=== PATIENT | male | born 1950 | race African-American/Black ===

== ENCOUNTER 2016-06-30 18:48 | Inpatient (IN) | payer OTHER, MEDICARE ==
[2016-06-30] MEDS ORDERED: NS 0.9% 1000 ML* 1,000 ML IV ONE ×2 (19:43→19:49)
[2016-06-30 19:55] LABS: Hematocrit 36 % (42-52); Hemoglobin 11.5 g/dl (14.0-18.0); Mean Corpuscular HGB Conc 32 g/dl (31-36); Mean Corpuscular Hemoglobin 27 pg (27-31); Mean Corpuscular Volume 85 fL (80-94); Mean Platelet Volume 9 um3 (7.4-10.4); Red Blood Count 4.24 10^6/ul (4.0-5.4); Red Cell Distribution Width 16 % (10.5-15); White Blood Count 9.2 10^3/ul (3.5-10.8)
[2016-06-30 20:11] LABS: ALT 26 U/L (7-52); AST 39 U/L (13-39); Albumin 4.2 g/dL (3.2-5.2); Alkaline Phosphatase 83 U/L (34-104); Anion Gap 4 mmol/L (2-11); BUN/Creatinine Ratio 10.5 (8-20); Blood Urea Nitrogen 11 mg/dL (6-24); CO2 Carbon Dioxide 29 mmol/L (22-32); Calcium 9.8 mg/dL (8.6-10.3); Chloride 102 mmol/L (101-111); EGFR African American 90.9 (>60); EGFR Non-African American 70.7 (>60); Glucose 90 mg/dL (70-100); Sodium 135 mmol/L (133-145); Total Protein 7.2 g/dL (6.4-8.9)
[2016-06-30] MEDS ORDERED: Iohexol 300* (CONTRAST) 10 ML SDV IV ONE (20:18)
[2016-06-30 20:36] LABS: Acetaminophen < 15 mcg/mL; Alcohol < 10 mg/dL (<10); Salicylate < 2.50 mg/dL (<30)
[2016-06-30 20:47] LABS: TSH (Thyroid Stimulating Horm) 0.73 mcIU/mL (0.34-5.60)
--- NOTE | 2016-06-30 21:05 | RAD ---
Indication: Head injury. CT of the brain was performed without IV contrast. Ventricular structures are midline. No midline shift is noted. The extra-axial spaces are unremarkable there is no evidence of intracranial mass or hemorrhage. No other high or low density lesions are identified. Mastoid air cells and paranasal sinuses are unremarkable. IMPRESSION: No intracranial mass or hemorrhage is noted.
[2016-06-30 21:08] LABS: Urine Bilirubin Negative (Negative); Urine Glucose Negative (Negative); Urine Nitrite Negative (Negative)
--- NOTE | 2016-06-30 21:16 | RAD ---
Indication: Chest and abdomen injury. Contrast: Administered 100.0 ml of OMNIPAQUE 300 mgi/ml CT of the chest, abdomen and pelvis was performed after IV contrast administration. Coronal and sagittal reconstructed images were obtained. The lung apices demonstrate some scarring in the apices with emphysematous changes in the right lung apex. No focal nodules or pneumothorax is noted. Dependent changes are noted. The heart demonstrates no pericardial effusion. There is no mediastinal or hilar adenopathy. The thyroid gland is otherwise unremarkable. The thoracic spine is otherwise unremarkable with visualized.. The liver is normal in size. There are no focal lesions or intrahepatic duct dilatation noted. The gallbladder demonstrates calcified gallstones but is partially contracted. No pericholecystic fluid or wall thickening is noted. The spleen is normal in size. No adrenal lesions are noted. The kidneys demonstrate symmetric nephrograms without focal lesions. Atherosclerotic aorta is noted without evidence of aneurysmal dilatation. No dilated loops of bowel are noted. Urinary bladder is unremarkable. No hernias are noted. No free fluid is identified. IMPRESSION: EMPHYSEMATOUS CHANGES OF THE LUNG ARRIAGA ARE NOTED. CHOLELITHIASIS WITHOUT BILIARY DUCT DILATATION. NO EVIDENCE OF SOLID ORGAN INJURY IS NOTED.
--- NOTE | 2016-06-30 21:16 | RAD ---
Indication: Shoulder pain. 3 views of left shoulder demonstrates no fracture. No other bone or joint abnormalities identified. IMPRESSION: No fracture of the left shoulder is noted.
[2016-06-30 21:33] LABS: Benzodiazepine Urine Screen None Detected (None Detect)
[2016-06-30 22:01] LABS: Troponin I 0.11 ng/mL (<0.04)
[2016-06-30] MEDS ORDERED: Acetaminophen TAB* 325 MG PO ONE (23:28)
[2016-07-01 00:27] LABS: Troponin I 0.47 ng/mL (<0.04)
[2016-07-01] MEDS ORDERED: Aspirin TAB* 325 MG PO ONE (00:32)
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
[2016-07-01] MEDS ORDERED: Heparin DRIP 25,000 UNITS(*) 25,000 UNITS/500 ML BAG IV SCH (02:00)
[2016-07-01] MEDS ORDERED: Heparin VIAL(*) 5000 UNITS/ML VIAL (FIVE THOUSAND) IV SCH (02:00)
[2016-07-01 03:37] LABS: Troponin I 0.57 ng/mL (<0.04)
[2016-07-01 06:56] LABS: HDL Cholesterol 40.6 mg/dL
[2016-07-01 07:19] LABS: Troponin I 0.5 ng/mL (<0.04)
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
[2016-07-01] MEDS: Aspirin EC Low Dose* 81 MG TAB.EC PO SCH (09:11)
[2016-07-01] MEDS: ARIPiprazole TAB* 15 MG PO SCH (09:11)
[2016-07-01] MEDS: Lisinopril TAB* 5 MG PO SCH (09:12)
[2016-07-01] MEDS: QUEtiapine TAB* 100 MG PO SCH (09:12)
[2016-07-01] MEDS: Clotrimazole 1% CREAM* 45 GM TOPICAL SCH ×2 (09:13→20:42)
[2016-07-01 10:49] LABS: Creatine Kinase 1134 U/L (10-223)
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
[2016-07-01] MEDS ORDERED: Regadenoson* 0.4 MG/5 ML SYRINGE ONE (12:50)
[2016-07-01] MEDS ORDERED: Aminophylline IV* 25 MG/ML 10 ML VIAL ONE (12:50)
[2016-07-01] MEDS: Enoxaparin(*) 80 MG/0.8 ML SYR SUBCUT SCH (16:07)
--- NOTE | 2016-07-01 16:43 | ECHO ---
Patient: ROWAN SOLANO [facility] Rec#: [id number] : 1950 Date: 07/01/2016 Age: 65y Height: 175 cm / 68.9 in Weight: 76 kg / 167.5 lbs Sex: M BSA: 1.91 Room#: 433 Admit Date#: 07/01/2016 Type: Inpatient Referring: SHABANA WALLACE MD Reading: Stella Vincent MD Ict Trainer: Bossman Heredia RDCS Transthoracic Echocardiogram Indication: Troponin elevation BP: 158/49 HR: 51 Rhythm: Bradycardia Findings History: NSTEMI Technical Comments: The study quality is good. Completed 1605 Left Ventricle: The left ventricular chamber size is normal. Global left ventricular wall motion and contractility are within normal limits. There is normal left ventricular systolic function. The estimated ejection fraction is 55-60%. Abnormal left ventricular diastolic filling is observed, consistent with impaired relaxation. Left Atrium: The left atrial chamber size is normal. Right Ventricle: The right ventricular cavity size is normal. The right ventricular global systolic function is normal. Right Atrium: The right atrial cavity size is normal. Aortic Valve: There is aortic annular calcification. There is no evidence of aortic regurgitation. There is no evidence of aortic stenosis. Mitral Valve: The mitral valve leaflets appear normal. There is a trace of mitral regurgitation. There is no evidence of mitral stenosis. Tricuspid Valve: There is trace tricuspid regurgitation. The right ventricular systolic pressure is estimated at 28 mmHg. Pulmonic Valve: The pulmonic valve appears normal. There is no evidence of pulmonic regurgitation. There is no pulmonic stenosis. Pericardium: There is no pericardial effusion. Aorta: There is no dilatation of the ascending aorta. There is no dilatation of the aortic arch. There is no dilation of the aortic root. Pulmonary Artery: The main pulmonary artery appears normal. Venous: The inferior vena cava appears normal in size. There is a greater than 50% respiratory change in the inferior vena cava dimension. Conclusions There is normal left ventricular wall motion and systolic function. The estimated ejection fraction is 55-60%. Abnormal left ventricular diastolic filling is observed, consistent with impaired relaxation. The right ventricular global systolic function is normal. All valves show good function. There is a trace of mitral regurgitation. There is trace tricuspid regurgitation. The right ventricular systolic pressure is estimated at 28 mmHg. No prior echo to compare. Measurements Name Value Normal Range RVIDd (AP) 2D 1.8 cm (0.9 - 2.6) RVDdMajor (2D) 2.7 cm (2.2 - 4.4) RAd ISD 4CH 5 cm (3.4 - 4.9) RA (A4C)W 2.7 cm (2.9 - 4.6) IVSd (2D) 0.9 cm (0.6 - 1) LVPWd (2D) 0.8 cm (0.6 - 1) LVIDd (2D) 4.7 cm (3.6 - 5.4) LVIDs (2D) 3.4 cm - LV FS (2D) 29 % (25 - 45) Aortic Annulus 1.8 cm (1.4 - 2.6) Ao root diameter (2D) 3.4 cm (2.1 - 3.5) Ascending Ao 2.7 cm (2.1 - 3.4) Aortic arch 1.2 cm (1.8 - 3.4) LA dimension (AP) 2D 4 cm (2.3 - 3.8) LAd ISD 4CH 5.5 cm (2.9 - 5.3) LA ISD 4CH W 3.9 cm (2.5 - 4.5) Name Value Normal Range LA ESV SP 4CH (A/L) 69 ml - LA ESV SP 2CH (A/L) 65 ml - LA ESV BP (A/L) 67 ml - LA ESV BP (A/L) index 35.27 ml/m2 - LA ESV SP 4CH (MOD) 62 ml - LA ESV SP 2CH (MOD) 58 ml - Name Value Normal Range MV E-wave Vmax 0.74 m/sec - MV deceleration time 174 msec - MV A-wave Vmax 0.92 m/sec - MV E:A ratio 0.79 ratio - LV septal e' Vmax 0.12 m/sec - LV lateral e' Vmax 0.06 m/sec - LV E:e' septal ratio 6.2 ratio - LV E:e' lateral ratio 12.3 ratio - Name Value Normal Range LVOT diameter 1.6 cm - LVOT Vmax 0.9 m/sec - Name Value Normal Range TR Vmax 2.5 m/sec - TR peak gradient 25 mmHg - RAP 3 mmHg - RVSP 28 mmHg - IVC diameter 1.6 cm - Name Value Normal Range PV Vmax 1 m/sec -
--- NOTE | 2016-07-01 17:47 | PN ---
Hospitalist Progress Note Spoke with staff from [facility]. States that patient hallucinates at baseline, does not cause any problems. Will continue to monitor. No need for psych consultation or change in medications at this point.
[2016-07-01] MEDS ORDERED: Atorvastatin* 20 MG TAB PO SCH (21:00)
[2016-07-02] MEDS: Enoxaparin(*) 80 MG/0.8 ML SYR SUBCUT SCH (05:07)
[2016-07-02] MEDS: QUEtiapine TAB* 100 MG PO SCH (08:22)
[2016-07-02] MEDS: Lisinopril TAB* 5 MG PO SCH (08:22)
[2016-07-02] MEDS: ARIPiprazole TAB* 15 MG PO SCH (08:22)
[2016-07-02] MEDS: Aspirin EC Low Dose* 81 MG TAB.EC PO SCH (08:22)
[2016-07-02] MEDS: Clotrimazole 1% CREAM* 45 GM TOPICAL SCH ×2 (08:23→20:13)
--- NOTE | 2016-07-02 13:35 | RAD ---
HISTORY: Hypertension, lipidemia, positive biomarkers COMPARISONS: None TECHNIQUE: A 2 day stress/rest myocardial perfusion study was performed, with pharmacologic stress. The stress portion was monitored by Dr. Vicnent. Gated SPECT imaging was performed, without CT-based attenuation correction secondary to patient body habitus DOSE: Stress: Technetium 99m tetrofosmin, 25.3 millicuries, injected at 1:05 PM on July 01, 2016 Rest: Technetium 99m tetrofosmin, 25.02 millicuries, injected at 6:40 AM on July 02, 2016 Pharmacologic agent: Lexiscan FINDINGS: CARDIAC MONITORING: Nondiagnostic EKG portion EF: 69 % with stress, 62% with rest TID: 0.97 MOTION: Normal motion, with normal wall thickening. PERFUSION: There is a moderate reversible photopenic defect of the distal anterior wall extending to the apex. OTHER: None IMPRESSION: REVERSIBLE HYPOPERFUSION OF THE ANTERIOR WALL EXTENDING TO THE APEX CONSISTENT WITH ISCHEMIA ASSESSMENT: INTERMEDIATE RISK. Based on imaging criteria from ACC/AHA 2002. Guideline Update for the Management of Patient's with Chronic Stable Angina, table 23. Noninvasive Risk Stratification.
--- NOTE | 2016-07-02 14:24 | DCNOTE ---
Patient seen this afternoon. Was very upset he did not get breakfast. Denies chest pain. Continues to have some B/L shoulder soreness. On exam, RRR, s1 and s2 present, no m/g/r, abd soft, NTND, BS+ Initial read on nuclear scan was read as reversible ischemic area.
[2016-07-02] MEDS ORDERED: Lisinopril TAB* 5 MG PO ONE (14:31)
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
[2016-07-02] MEDS: Atorvastatin* 20 MG TAB PO SCH (20:12)
[2016-07-03] MEDS: QUEtiapine TAB* 100 MG PO SCH (08:54)
[2016-07-03] MEDS: Lisinopril TAB* 5 MG PO SCH (08:55)
[2016-07-03] MEDS: Aspirin EC Low Dose* 81 MG TAB.EC PO SCH (08:55)
[2016-07-03] MEDS: Clotrimazole 1% CREAM* 45 GM TOPICAL SCH ×2 (08:55→20:09)
[2016-07-03] MEDS: ARIPiprazole TAB* 15 MG PO SCH (10:06)
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
[2016-07-03] MEDS: Enoxaparin(*) 80 MG/0.8 ML SYR SUBCUT SCH (17:22)
[2016-07-03] MEDS: Atorvastatin* 20 MG TAB PO SCH (20:08)
[2016-07-03] MEDS ORDERED: hydrALAZINE IV* 20 MG/ML VIAL IV SLOW PU PRN (20:45)
[2016-07-04] MEDS: Lisinopril TAB* 5 MG PO SCH ×2 (08:47→10:13)
[2016-07-04] MEDS: ARIPiprazole TAB* 15 MG PO SCH ×2 (08:47→10:13)
[2016-07-04] MEDS: Aspirin EC Low Dose* 81 MG TAB.EC PO SCH ×2 (08:47→10:13)
[2016-07-04] MEDS: QUEtiapine TAB* 100 MG PO SCH ×2 (08:47→10:13)
[2016-07-04] MEDS: Enoxaparin(*) 80 MG/0.8 ML SYR SUBCUT SCH ×3 (08:47→11:36)
[2016-07-04] MEDS: Clotrimazole 1% CREAM* 45 GM TOPICAL SCH ×2 (08:48→20:21)
[2016-07-04] MEDS: Haloperidol TAB* 5 MG PO PRN (10:12)
[2016-07-04] MEDS: Enoxaparin(*) 40 MG/0.4 ML SYR SUBCUT SCH (12:59)
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
[2016-07-04] MEDS: Atorvastatin* 20 MG TAB PO SCH (20:18)
[2016-07-05] MEDS: QUEtiapine TAB* 100 MG PO SCH (08:09)
[2016-07-05] MEDS: Aspirin EC Low Dose* 81 MG TAB.EC PO SCH (08:09)
[2016-07-05] MEDS: Enoxaparin(*) 40 MG/0.4 ML SYR SUBCUT SCH (08:09)
[2016-07-05] MEDS: Clotrimazole 1% CREAM* 45 GM TOPICAL SCH ×2 (08:09→20:00)
[2016-07-05] MEDS: ARIPiprazole TAB* 15 MG PO SCH (08:09)
[2016-07-05] MEDS: Lisinopril TAB* 10 MG PO SCH ×2 (08:09→20:00)
[2016-07-05] MEDS ORDERED: Enoxaparin(*) 40 MG/0.4 ML SYR SUBCUT SCH (09:00)
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
[2016-07-05] MEDS: Atorvastatin* 20 MG TAB PO SCH (19:59)
[2016-07-05] MEDS ORDERED: Haloperidol INJ IV/IM* 5 MG/ML AMP ONE (23:17)
[2016-07-05] MEDS ORDERED: Ziprasidone IM INJ* 20 MG/ML VIAL IM ONE (23:22)
[2016-07-06 06:02] LABS: BUN/Creatinine Ratio 15.5 (8-20); Calcium 10.1 mg/dL (8.6-10.3); EGFR African American 99.6 (>60); EGFR Non-African American 77.4 (>60); Potassium 4.6 mmol/L (3.5-5.0)
[2016-07-06] MEDS: ARIPiprazole TAB* 15 MG PO SCH (08:13)
[2016-07-06] MEDS: QUEtiapine TAB* 100 MG PO SCH (08:14)
[2016-07-06] MEDS: Aspirin EC Low Dose* 81 MG TAB.EC PO SCH (08:15)
[2016-07-06] MEDS: Lisinopril TAB* 10 MG PO SCH ×2 (08:16→19:27)
[2016-07-06] MEDS: Enoxaparin(*) 40 MG/0.4 ML SYR SUBCUT SCH (08:21)
[2016-07-06] MEDS: Clotrimazole 1% CREAM* 45 GM TOPICAL SCH ×2 (08:22→19:30)
--- NOTE | 2016-07-06 15:36 | CONSULT ---
Identification - Patient Identification Reason for Psychiatric Consultation: Violent Behavior -: Patient is a 65 year old, M admitted on 07/01/16. - MHU Identification Employment Status: Disabled Hx Psychiatric Hospitalization: Yes History - Objective HPI: The patient is much more pleasant today on exam, welcoming me into his room and inquiring appropriately about his transfer to the [facility]. This clinician did speak with [facility] outpatient psychiatrist, David Patterson ([phone]), from the [facility] outpatient clinic in [place], [place]. According to Dr. Patterson, Mr. Jackson's last appointment with him had been on June 01, at which time they discussed adding Depakote to the patient's regimen, due to his increasing agitated behavior in his retirement. The patient was reluctant to consider this and the medication was not started. It was also revealed that Mr. Jackson receives a biweekly Haldol injection of 100mg, with the last being received on of this year. Dr. Jackson also revealed that the patient had had an acute psychiatric hospitalization at the [facility] in the fall of 2015. Lab Results: Laboratory Tests 07/01/16 07/01/16 07/01/16 02:55 02:55 06:19 APTT 29.9 Sodium Potassium Chloride Carbon Dioxide Anion Gap BUN Creatinine Est GFR ( Amer) Est GFR (Non-Af Amer) BUN/Creatinine Ratio Glucose Calcium Total Creatine Kinase 4194 H 3972 H CK-MB (CK-2) 13.4 H 12.6 H Troponin I 0.57 H* 0.50 H* Triglycerides 32 Cholesterol 109 LDL Cholesterol 62 HDL Cholesterol 40.6 07/01/16 07/06/16 19:25 05:33 APTT 40.7 H Sodium 132 L Potassium 4.6 Chloride 100 L Carbon Dioxide 25 Anion Gap 7 BUN 15 Creatinine 0.97 Est GFR ( Amer) 99.6 Est GFR (Non-Af Amer) 77.4 BUN/Creatinine Ratio 15.5 Glucose 112 H Calcium 10.1 Total Creatine Kinase CK-MB (CK-2) Troponin I Triglycerides Cholesterol LDL Cholesterol HDL Cholesterol Exam Appearance: Well Developed/Nourished Hygiene: Normal Grooming: Fairly Well Kept Psychomotor Activities: Normal Exhibits Abnormal Movement: No Attitude and Relatedness: Cooperative Eye Contact: Fair - Speech Quality: Unpressured Latencies: Normal Quantity: Terse Patient's Decription of Mood: "Okay" Observed Affect: Tense Affect Consistent with: Dysphoria Patient's Thought Process: Goal Directed Thought Content: Yes Paranoid Ideation, No Passive Wish, No Suicidal Planning, No Homicidal Ideation Experiencing Hallucinations: No, Sensorium is Clear Type of Hallucinations: Visual: No, Auditory: No, Command: No Level of Consciousness: Alert Orientation: Yes Intact, Yes Orientated to Time, Yes Orientated to Place, Yes Orientated to Person Impulse Control: Poor Insight and Judgement: Impaired Impression - Impression Clinical Impression: 65 y.o. , AA male with a history of chronic schizophrenia, currently admitted to the medical service secondary to elevated troponin values , who has been paranoid, agitated and violent of late at his retirement. The patient awaits transfer to an accepting [facility]. Inpatient DSM-IV Dx: Schizophrenia Merits Inpatient Hospitalization: Yes Problem List - U Problems Type of Problem: Impulse Control Status of Problem: Active Plan - Treatment Plan Treatment Plan: The patient is receiving treatment with aripiprazole, quetiapine and clonazepam. He remains in need of psychiatric hospitalization due to paranoia and his retirement's refusal to accept him home without [facility] inpatient care. We will continue to await acceptance for transfer to the [facility]. He will need his next Haldol Decanoate injection of 100mg IM on July 10. Continued Medication Management: Continue Outpt Medication Medications: Current Medications Aripiprazole (Abilify Tab*) 30 mg PO DAILY [facility] Last Admin: 07/06/16 08:13 Dose: 30 mg Aspirin (Aspirin Ec Low Dose*) 81 mg PO DAILY [facility] Last Admin: 07/06/16 08:15 Dose: 81 mg Atorvastatin Calcium (Lipitor*) 40 mg PO 2100 [facility] Last Admin: 07/05/16 19:59 Dose: 40 mg Clotrimazole (Clotrimazole 1%*) 1 applic TOPICAL BID [facility] Last Admin: 07/06/16 08:22 Dose: Not Given Enoxaparin Sodium (Lovenox(*)) 40 mg SUBCUT DAILY [facility] Last Admin: 07/06/16 08:21 Dose: Not Given Haloperidol (Haldol Tab*) 5 mg PO Q6H PRN PRN Reason: AGITATION/ANXIETY/INSOMNIA Last Admin: 02/25/17 10:12 Dose: 5 mg Lisinopril (Prinivil Tab*) 20 mg PO DAILY [facility] Last Admin: 07/06/16 08:16 Dose: 20 mg Lisinopril (Prinivil Tab*) 10 mg PO BEDTIME [facility] Last Admin: 07/05/16 20:00 Dose: 10 mg Quetiapine Fumarate (Seroquel Tab*) 200 mg PO DAILY [facility] Last Admin: 07/06/16 08:14 Dose: 200 mg - Discharge Plan Discharge Plan: Inpatient Hospitalization
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
[2016-07-06] MEDS: Atorvastatin* 20 MG TAB PO SCH (19:27)
[2016-07-06] MEDS: Haloperidol TAB* 5 MG PO PRN (22:58)
[2016-07-07] MEDS ORDERED: Ziprasidone IM INJ* 20 MG/ML VIAL IM ONE ×3 (03:19→17:00)
[2016-07-07] MEDS: Clotrimazole 1% CREAM* 45 GM TOPICAL SCH ×2 (08:01→21:54)
[2016-07-07] MEDS: ARIPiprazole TAB* 15 MG PO SCH (08:01)
[2016-07-07] MEDS: Lisinopril TAB* 10 MG PO SCH ×2 (08:01→21:54)
[2016-07-07] MEDS: QUEtiapine TAB* 100 MG PO SCH (08:01)
[2016-07-07] MEDS: Aspirin EC Low Dose* 81 MG TAB.EC PO SCH (08:01)
[2016-07-07] MEDS: Enoxaparin(*) 40 MG/0.4 ML SYR SUBCUT SCH (08:07)
[2016-07-07 08:36] LABS: Hematocrit 38 % (42-52); Hemoglobin 12.3 g/dl (14.0-18.0); Mean Platelet Volume 9 um3 (7.4-10.4)
[2016-07-07] MEDS: Haloperidol TAB* 5 MG PO PRN (08:39)
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
--- NOTE | 2016-07-07 19:00 | PN ---
Progress Note - Progress Note Note: spent on discharge 65 minutes
[2016-07-07] MEDS: Atorvastatin* 20 MG TAB PO SCH (21:55)
[2016-07-08] MEDS: Aspirin EC Low Dose* 81 MG TAB.EC PO SCH (08:19)
[2016-07-08] MEDS: ARIPiprazole TAB* 15 MG PO SCH (08:20)
[2016-07-08] MEDS: QUEtiapine TAB* 100 MG PO SCH (08:20)
[2016-07-08] MEDS: Lisinopril TAB* 10 MG PO SCH (08:20)
[2016-07-08] MEDS: Enoxaparin(*) 40 MG/0.4 ML SYR SUBCUT SCH (08:21)
[2016-07-08] MEDS: Clotrimazole 1% CREAM* 45 GM TOPICAL SCH (08:21)
[2016-07-08] MEDS ORDERED: Ziprasidone * 20 MG CAP (generic Geodon) PO SCH (09:00)
[2016-07-08 10:50] VITALS: BP 166/48
== END 2016-07-08 12:25 | DRG 884 ==
LOC: ED 18:48 → MEDTELE 07-01 02:22 → MED 07-02 23:40
PROVIDERS: ADMIT Internal Medicine; ATTEND Internal Medicine
DX: R45.1 Restlessness and agitation (principal); F20.9 Schizophrenia, unspecified; I10 Essential (primary) hypertension; R79.89 Other specified abnormal findings of blood chemistry; R00.1 Bradycardia, unspecified; Z79.82 Long term (current) use of aspirin; F43.10 Post-traumatic stress disorder, unspecified; E78.5 Hyperlipidemia, unspecified; Z88.0 Allergy status to penicillin; Z88.8 Allergy status to other drugs, medicaments and biological substances; Z87.891 Personal history of nicotine dependence; K80.20 Calculus of gallbladder without cholecystitis without obstruction; I51.89 Other ill-defined heart diseases; M25.512 Pain in left shoulder; M25.511 Pain in right shoulder
CPT/HCPCS: 36415; 70450; 71260; 74177; 78452; 80048; 80053; 80061; 80307; 80320; 80329; 81003; 82550; 82553; 84443; 84484; 85014; 85018; 85025; 85049; 85730; 93005; 93017; 93306; 99406; A9270-GY; A9502; G0480; J0280; J0360; J1630; J1650; J2785; J3486; Q9967

== ENCOUNTER 2016-09-02 14:33 | Inpatient (IN) | payer OTHER, MEDICARE ==
[2016-09-02 15:05] LABS: Hematocrit 41 % (42-52); Hemoglobin 12.8 g/dl (14.0-18.0); Mean Corpuscular HGB Conc 32 g/dl (31-36); Mean Corpuscular Hemoglobin 27 pg (27-31); Mean Corpuscular Volume 86 fL (80-94); Mean Platelet Volume 9 um3 (7.4-10.4); Red Blood Count 4.71 10^6/ul (4.0-5.4); Red Cell Distribution Width 17 % (10.5-15)
[2016-09-02 15:23] LABS: Troponin I 0.03 ng/mL (<0.04)
[2016-09-02 15:24] LABS: ALT 21 U/L (7-52); AST 28 U/L (13-39); Albumin 4.5 g/dL (3.2-5.2); Alkaline Phosphatase 59 U/L (34-104); Anion Gap 17 mmol/L (2-11); BUN/Creatinine Ratio 11.5 (8-20); Blood Urea Nitrogen 15 mg/dL (6-24); CO2 Carbon Dioxide 17 mmol/L (22-32); Calcium 10.2 mg/dL (8.6-10.3); Chloride 101 mmol/L (101-111); EGFR Non-African American 55.2 (>60); Globulin 3.2 g/dL (2-4); Glucose 128 mg/dL (70-100); Magnesium 2.7 mg/dL (1.9-2.7); Potassium 4.2 mmol/L (3.5-5.0); Sodium 135 mmol/L (133-145); Total Protein 7.7 g/dL (6.4-8.9)
--- NOTE | 2016-09-02 15:39 | RAD ---
HISTORY: Seizure COMPARISONS: June 30, 2016 TECHNIQUE: Multiple contiguous axial CT scans were obtained of the head without intravenous contrast. FINDINGS: HEMORRHAGE/INFARCT: There is no hemorrhage or acute infarct. MASSES/SHIFT: There is no mass or shift. EXTRA-AXIAL SPACES: There are no extra-axial fluid collections. SULCI AND VENTRICLES: The sulci and ventricles are normal in size and position for the patient's stated age. CEREBRUM: There are no focal parenchymal abnormalities. BRAINSTEM: There are no focal parenchymal abnormalities. CEREBELLUM: There are no focal parenchymal abnormalities. VESSELS: The vessels are grossly normal. PARANASAL SINUSES: The paranasal sinuses are clear. ORBITS: The orbits are unremarkable. BONES AND SOFT TISSUE: No bone or soft tissue abnormalities are noted. OTHER: None IMPRESSION: NO ACUTE INTRACRANIAL PATHOLOGY.
[2016-09-02 16:04] LABS: Alcohol < 10 mg/dL (<10)
[2016-09-02 16:12] LABS: TSH (Thyroid Stimulating Horm) 0.68 mcIU/mL (0.34-5.60)
[2016-09-02] MEDS ORDERED: LUBRIDERM TOPICAL PRN (17:33)
[2016-09-02] MEDS ORDERED: Senna TAB PO PRN (17:33)
[2016-09-02] MEDS ORDERED: Naproxen TAB* 250 MG PO PRN (17:33)
[2016-09-02] MEDS ORDERED: UREA 20% TOPICAL PRN (17:33)
[2016-09-02] MEDS ORDERED: Meclizine TAB* 12.5 MG PO PRN (17:33)
[2016-09-02] MEDS ORDERED: clonazePAM TAB(*) 0.5 MG PO PRN (17:33)
[2016-09-02] MEDS ORDERED: Docusate CAP* 100 MG PO PRN (18:12)
[2016-09-02] MEDS ORDERED: Divalproex DR TAB(*) 250 MG PO ONE (18:12)
[2016-09-02] MEDS ORDERED: Valproic Acid CAP(*) 250 MG PO ONE (18:24)
[2016-09-02] MEDS ORDERED: hydrALAZINE IV* 20 MG/ML VIAL IV SLOW PU PRN (18:27)
[2016-09-02] MEDS ORDERED: hydrALAZINE IV* 20 MG/ML VIAL IV SLOW PU ONE (18:30)
--- NOTE | 2016-09-02 18:52 | ED ---
Mayo Hugo Billy, scribed for Gerry Noel MD on 09/02/16 at 1508 . Neurological HPI - HPI Summary HPI Summary: Patient is a 65 year-old male BIBA to [facility] for evaluation of a witnessed seizure at the [facility] today. 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 He reports a frontal headache since 1030 today and cold-like symptoms in the last few days. He has a history of schizophrenia but no known seizure history. - History of Current Complaint Chief Complaint: EDSeizure Stated Complaint: SEIZURE Time Seen by Provider: 09/02/16 14:35 Hx Obtained From: Patient, EMS Onset/Duration: Sudden Onset Timing: Sudden Onset Seizure Severity: Moderate Neurological Deficit Location: Generalized Headache Location: Frontal Aggravating: Unknown Alleviating: Unknown Associated Signs and Symptoms: Positive: Headache - Additional Pertinent History Primary Care Physician: [id number] - Allergy/Home Medications Allergies/Adverse Reactions: Allergies Allergy/AdvReac Type Severity Reaction Status Date / Time Penicillins Allergy Unknown Verified 09/02/16 14:55 Reaction Details Risperidone Allergy Unknown Verified 09/02/16 14:55 Reaction Details Home Medications: Home Medications Cyanocobalamin TAB* [Vitamin B12 TAB*] 1,000 mcg PO DAILY 09/02/16 [History Confirmed 09/02/16] Emollient [Eucerin] 1 lot TOPICAL TID PRN 09/02/16 [History Confirmed 09/02/16] Ergocalciferol [Vitamin D2] 50,000 unit PO WEEKLY 09/02/16 [History Confirmed ] Haloperidol Decanoate [Haldol Decanoate 100] 100 mg IM SEE INSTRUCTIONS [History Confirmed 09/02/16] Lisinopril TAB* [Prinivil TAB*] 5 mg PO DAILY 09/02/16 [History Confirmed ] Meclizine TAB* [Antivert 12.5 TAB*] 12.5 mg PO Q8HR PRN 09/02/16 [History Confirmed 09/02/16] Menthol-Methyl Salicylate (Lucina [Pain Relieving Cream] 1 cre TOPICAL Q6HR PRN [History Confirmed 09/02/16] Naproxen [Naproxen 500 MG TABS] 500 mg PO BID PRN 09/02/16 [History Confirmed ] OLANzapine TAB* [Zyprexa 10 MG TAB*] 10 mg PO BEDTIME 09/02/16 [History Confirmed 09/02/16] Sennosides-Docusate Sodium [Senna-S 8.6-50 mg] 2 tab PO BEDTIME PRN 09/02/16 [ History Confirmed 09/02/16] Urea [Carmol 20] 20 % TOPICAL TID PRN 09/02/16 [History Confirmed 09/02/16] Valproic Acid CAP(*) [Depakene CAP(*)] 1,000 mg PO BID 09/02/16 [History Confirmed 09/02/16] clonazePAM TAB(*) [KlonoPIN TAB(*)] 0.5 mg PO BID PRN 09/02/16 [History Confirmed 09/02/16] PMH/Surg Hx/FS Hx/Imm Hx Endocrine/Hematology History: Denies: Hx Diabetes Cardiovascular History: Reports: Hx Hypercholesterolemia, Hx Hypertension, Other Cardiovascular Problems/Disorders - HLD Denies: Hx Angina, Hx Coronary Artery Disease, Hx Myocardial Infarction, Hx Valvular Heart Disease Respiratory History: Denies: Hx Asthma, Hx Chronic Obstructive Pulmonary Disease (COPD) Musculoskeletal History: Reports: Hx Arthritis Sensory History: Reports: Hx Contacts or Glasses Opthamlomology History: Reports: Hx Contacts or Glasses Psychiatric History: Reports: Hx Post Traumatic Stress Disorder, Hx Schizophrenia Infectious Disease History: No Infectious Disease History: Denies: Traveled Outside the [place] in Last 30 Days - Family History Known Family History: Positive: Unknown - Patient is a poor historian. - Social History Alcohol Use: None Substance Use Type: Reports: None Smoking Status (MU): Former Smoker Review of Systems Negative: Fever Positive: Sore Throat Neurological: Other - seizure Positive: Headache All Other Systems Reviewed And Are Negative: Yes Physical Exam Triage Information Reviewed: Yes Vital Signs On Initial Exam: Initial Vitals Temp Pulse Resp BP Pulse Ox 97.8 F 100 20 117/67 96 09/02/16 14:40 09/02/16 14:40 09/02/16 14:40 09/02/16 14:40 09/02/16 14:40 Vital Signs Reviewed: Yes Appearance: Positive: Well-Appearing, No Pain Distress Skin: Positive: Warm, Skin Color Reflects Adequate Perfusion, Dry Head/Face: Positive: Normal Head/Face Inspection, Other - sinuses transluminate well Eyes: Positive: Normal ENT: Positive: Normal ENT inspection Neck: Positive: Supple, Nontender Respiratory/Lung Sounds: Positive: Clear to Auscultation, Breath Sounds Present Cardiovascular: Positive: Tachycardia Abdomen Description: Positive: Nontender, Soft Musculoskeletal: Positive: Normal Neurological: Positive: Other - Slow to mentate, possibly even attends to internal stimuli Diagnostics - Vital Signs Vital Signs Temp Pulse Resp BP Pulse Ox 09/02/16 14:49 97.8 F 111 22 117/67 96 09/02/16 14:40 97.8 F 100 20 117/67 96 - Laboratory Lab Results: Lab Results 09/02/16 09/02/16 09/02/16 Range/Units 14:53 14:53 14:53 WBC 5.0 (3.5-10.8) 10^3/ul RBC 4.71 (4.0-5.4) 10^6/ul Hgb 12.8 L (14.0-18.0) g/dl Hct 41 L (42-52) % MCV 86 (80-94) fL MCH 27 (27-31) pg MCHC 32 (31-36) g/dl RDW 17 H (10.5-15) % Plt Count 171 (150-450) 10^3/ul MPV 9 (7.4-10.4) um3 Neut % (Auto) 75.6 (38-83) % Lymph % (Auto) 11.9 L (25-47) % Love % (Auto) 11.3 H (1-9) % Eos % (Auto) 0.5 (0-6) % Baso % (Auto) 0.7 (0-2) % Absolute Neuts (auto) 3.8 (1.5-7.7) 10^3/ul Absolute Lymphs (auto) 0.6 L (1.0-4.8) 10^3/ul Absolute Monos (auto) 0.6 (0-0.8) 10^3/ul Absolute Eos (auto) 0 (0-0.6) 10^3/ul Absolute Basos (auto) 0 (0-0.2) 10^3/ul Absolute Nucleated RBC 0 10^3/ul Nucleated RBC % 0.1 INR (Anticoag Therapy) 1.02 (0.89-1.11) Sodium 135 (133-145) mmol/L Potassium 4.2 (3.5-5.0) mmol/L Chloride 101 (101-111) mmol/L Carbon Dioxide 17 L (22-32) mmol/L Anion Gap 17 H (2-11) mmol/L BUN 15 (6-24) mg/dL Creatinine 1.30 H (0.67-1.17) mg/dL Est GFR ( Amer) 71.0 (>60) Est GFR (Non-Af Amer) 55.2 (>60) BUN/Creatinine Ratio 11.5 (8-20) Glucose 128 H (70-100) mg/dL Lactic Acid (0.5-2.0) mmol/L Calcium 10.2 (8.6-10.3) mg/dL Magnesium 2.7 (1.9-2.7) mg/dL Total Bilirubin 0.40 (0.2-1.0) mg/dL AST 28 (13-39) U/L ALT 21 (7-52) U/L Alkaline Phosphatase 59 (34-104) U/L Troponin I 0.03 (<0.04) ng/mL Total Protein 7.7 (6.4-8.9) g/dL Albumin 4.5 (3.2-5.2) g/dL Globulin 3.2 (2-4) g/dL Albumin/Globulin Ratio 1.4 (1-3) TSH 0.68 (0.34-5.60) mcIU/mL Serum Alcohol < 10 (<10) mg/dL 09/02/ Range/Units 14:53 WBC (3.5-10.8) 10^3/ul RBC (4.0-5.4) 10^6/ul Hgb (14.0-18.0) g/dl Hct (42-52) % MCV (80-94) fL MCH (27-31) pg MCHC (31-36) g/dl RDW (10.5-15) % Plt Count (150-450) 10^3/ul MPV (7.4-10.4) um3 Neut % (Auto) (38-83) % Lymph % (Auto) (25-47) % Love % (Auto) (1-9) % Eos % (Auto) (0-6) % Baso % (Auto) (0-2) % Absolute Neuts (auto) (1.5-7.7) 10^3/ul Absolute Lymphs (auto) (1.0-4.8) 10^3/ul Absolute Monos (auto) (0-0.8) 10^3/ul Absolute Eos (auto) (0-0.6) 10^3/ul Absolute Basos (auto) (0-0.2) 10^3/ul Absolute Nucleated RBC 10^3/ul Nucleated RBC % INR (Anticoag Therapy) (0.89-1.11) Sodium (133-145) mmol/L Potassium (3.5-5.0) mmol/L Chloride (101-111) mmol/L Carbon Dioxide (22-32) mmol/L Anion Gap (2-11) mmol/L BUN (6-24) mg/dL Creatinine (0.67-1.17) mg/dL Est GFR ( Amer) (>60) Est GFR (Non-Af Amer) (>60) BUN/Creatinine Ratio (8-20) Glucose (70-100) mg/dL Lactic Acid 10.5 H* (0.5-2.0) mmol/L Calcium (8.6-10.3) mg/dL Magnesium (1.9-2.7) mg/dL Total Bilirubin (0.2-1.0) mg/dL AST (13-39) U/L ALT (7-52) U/L Alkaline Phosphatase (34-104) U/L Troponin I (<0.04) ng/mL Total Protein (6.4-8.9) g/dL Albumin (3.2-5.2) g/dL Globulin (2-4) g/dL Albumin/Globulin Ratio (1-3) TSH (0.34-5.60) mcIU/mL Serum Alcohol (<10) mg/dL Result Diagrams: 09/02/16 14:53 09/02/16 14:53 Lab Statement: Any lab studies that have been ordered have been reviewed, and results considered in the medical decision making process. - CT Brain CT Interpretation: No Acute Changes CT Interpretation Completed By: Radiologist - EKG 1433 EKG Interpretation: sinus tachycardia 105 bpm, non-specific lateral changes Course/Dx - Course Course Of Treatment: It is unclear what transpired today. His lactate is 10 and this points towards a seizure, however he may had had syncope as he remembers that events to some extent. - Diagnoses Provider Diagnoses: Syncope and collapse - Physician Notifications Discussed Care of Patient With: Dr. Kessler (hospitalist) at 1740: accepts admission. Discharge - Discharge Plan Condition: Stable Disposition: ADMITTED TO [facility] The documentation as recorded by the Mayo castro Billy accurately reflects the service I personally performed and the decisions made by me, Gerry Noel MD.
[2016-09-02 19:24] LABS: Valproic Acid < 13.0 mcg/mL (50-100)
[2016-09-02 19:27] LABS: Creatine Kinase 371 U/L (10-223)
[2016-09-02] MEDS: Atorvastatin* 20 MG TAB PO SCH (20:01)
[2016-09-02] MEDS: OLANzapine TAB* 10 MG PO SCH (20:01)
[2016-09-02] MEDS: NS 0.9% 1000 ML* 1,000 ML IV SCH (20:02)
[2016-09-02] MEDS ORDERED: Emollient Lotion 480 ML BTL TOPICAL PRN (20:15)
[2016-09-02] MEDS: Heparin VIAL(*) 5000 UNITS/ML VIAL (FIVE THOUSAND) SUBCUT SCH (20:30)
[2016-09-02] MEDS ORDERED: Valproic Acid CAP(*) 250 MG PO SCH (21:00)
--- NOTE | 2016-09-02 22:23 | HP ---
HISTORY AND PHYSICAL:* ADDENDUM: MEDICATIONS: 1. Lisinopril 5 mg p.o. daily. 2. Meclizine 12.5 mg p.o. p.r.n. dizziness. 3. Naproxen 500 mg p.o. b.i.d. p.r.n. pain. 4. Olanzapine 10 mg p.o. at bedtime. 5. Senna-S 8.6/50 two tabs p.o. bedtime as needed for constipation. 6. Valproic acid 1000 mg p.o. b.i.d. (this medication is listed as for his mood ). ALLERGIES: As per records, the patient is allergic to PENICILLIN and RISPERIDONE. FAMILY HISTORY: As per records is noncontributory. SOCIAL HISTORY: He was a smoker and quit 6 months ago. He denies any alcohol or drug use. He is a resident of [facility] and surrogate decision maker is his daughter, Davida Jackson, phone number is [phone]. PHYSICAL EXAMINATION GENERAL: The patient is a pleasant elderly male, lying in ER stretcher, in no acute distress. VITAL SIGNS: Temperature 97.8, heart rate is 100, respiratory rate is 20, oxygen saturation 96% on room air, blood pressure is 117/67. HEENT: Pupils are equal and reactive to light. Extraocular movements are intact. His mucous membranes are moist. He has no tongue bite. NECK: Supple. CHEST: Bowel sounds present bilaterally. No added sounds. CVS: Normal S1, S2. Regular rate and rhythm. ABDOMEN: Soft, nontender. Bowel sounds are present. EXTREMITIES: No edema. SKIN: Dry. NEUROLOGIC: He is alert and oriented x3. Cranial nerves II through XII are grossly intact. He is able to move all 4 extremities with no deficits at this point. LABORATORY AND IMAGING DATA: The patient had a CBC that showed WBC of 5, hemoglobin of 12.8, hematocrit of 41, platelets of 171, 75% neutrophils. INR is 1.02. Chemistry showed sodium 135, potassium 4.2, chloride of 101, bicarb 17 , anion gap of 17, BUN of 15, creatinine of 1.3, glucose of 128, lactic acid is 10.5. LFTs are normal. TSH is 0.68. Serum alcohol level was less than 10. EKG done on 09/02/16 at 1435 showed sinus tachycardia at 105 beats per minute with suggestion of LVH. No significant change when compared to his prior EKG from June. At that time, he was bradycardic. CT of the brain without contrast showed no acute intracranial pathology. ASSESSMENT AND PLAN: 1. Mr. Jackson is a 65-year-old male with a past medical history of schizophrenia , hyperlipidemia, hypertension who was brought into the emergency room after having seizures at his home. The patient is unable to give any history at this point because he does not remember, so he is able to tell me he had a seizure because the ambulance crew told him. He is going to be admitted to the telemetry floor for further workup. As far as he knows, he had no recent medication changes. He states that he does not drink alcohol. He will have an MRI of the brain without contrast and EEG and Neurology consultation already requested with Dr. Howard. The patient is already on valproic acid 1000 mg p.o. b.i.d. as outpatient. So, we will discuss what other medications can be tried. He will be on neurological checks and he will have seizure precautions. 2. Anion gap metabolic acidosis. This is similar to lactic acidosis associated with seizure. The patient is going to receive IV fluids and we will repeat his lactic acid later tonight. 3. Creatinine elevation. It is unclear to me at this point if he has chronic kidney disease. We will give IV hydration and monitor his renal function. For now, I will continue his antihypertensives. 4. Schizophrenia. We will continue clonazepam, Zyprexa, valproic acid. 5. Hyperlipidemia. We will continue atorvastatin. 6. DVT prophylaxis. The patient has a score of 3 on the DVT Prophylaxis Risk Assessment Guide, and he will be started on heparin. 7. Code status. The patient has an out of the hospital do not resuscitate. TIME SPENT: Approximately 50 minutes were spent with the patient interview, medical records review, physical examination to complete this admission, and more than half this time was spent [id number] with the patient in coordination of care. [id number]/[facility] #: [id number] ALEC
--- NOTE | 2016-09-02 22:40 | HP ---
CONTINUATION ADDENDUM NOW INCLUDED ON THIS REPORT HISTORY AND PHYSICAL: DATE OF ADMISSION: 09/02/16 TIME OF EVALUATION: 5:45 p.m. PRIMARY CARE PROVIDER: ROSIBEL Bowser at [facility] CHIEF COMPLAINT: "I had a seizure." HISTORY OF PRESENT ILLNESS: Mr. Jackson is a 65-year-old male with a past medical history of hyperlipidemia, schizophrenia, and hypertension who was brought in to the emergency room after a seizure episode. He does not remember exactly what happened, but tells me he knows he had a seizure because the ambulance crew told him that. As per nurses' notes, the patient had witnessed seizures at [facility] and received 5 mg of Versed in the ambulance because he became combative after his second seizure. He was described as lethargic when he came to the emergency room, but this now appears to be resolved. He denies any other complaints. He has no headaches, nausea, or vomiting. No visual changes. PAST MEDICAL HISTORY: 1. Hyperlipidemia. 2. Schizophrenia. 3. Hypertension. 4. Possible RI in June 2016. MEDICATIONS: 1. Atorvastatin 20 mg p.o. at bedtime. 2. Clonazepam 0.5 mg p.o. b.i.d. as needed for anxiety. 3. Cyanocobalamin 1000 mcg p.o. daily. 4. Ergocalciferol 50,000 units p.o. weekly. 5. Haldol Decanoate 100 mg intramuscular at the SD. CONTINUATION ADDENDUM: MEDICATIONS: 1. Lisinopril 5 mg p.o. daily. 2. Meclizine 12.5 mg p.o. p.r.n. dizziness. 3. Naproxen 500 mg p.o. b.i.d. p.r.n. pain. 4. Olanzapine 10 mg p.o. at bedtime. 5. Senna-S 8.6/50 two tabs p.o. bedtime as needed for constipation. 6. Valproic acid 1000 mg p.o. b.i.d. (this medication is listed as for his mood ). ALLERGIES: As per records, the patient is allergic to PENICILLIN and RISPERIDONE. FAMILY HISTORY: As per records is noncontributory. SOCIAL HISTORY: He was a smoker and quit 6 months ago. He denies any alcohol or drug use. He is a resident of [facility] and surrogate decision maker is his daughter, Davida Jackson, phone number is [phone]. PHYSICAL EXAMINATION GENERAL: The patient is a pleasant elderly male, lying in ER stretcher, in no acute distress. VITAL SIGNS: Temperature 97.8, heart rate is 100, respiratory rate is 20, oxygen saturation 96% on room air, blood pressure is 117/67. HEENT: Pupils are equal and reactive to light. Extraocular movements are intact. His mucous membranes are moist. He has no tongue bite. NECK: Supple. CHEST: Bowel sounds present bilaterally. No added sounds. CVS: Normal S1, S2. Regular rate and rhythm. ABDOMEN: Soft, nontender. Bowel sounds are present. EXTREMITIES: No edema. SKIN: Dry. NEUROLOGIC: He is alert and oriented x3. Cranial nerves II through XII are grossly intact. He is able to move all 4 extremities with no deficits at this point. LABORATORY AND IMAGING DATA: The patient had a CBC that showed WBC of 5, hemoglobin of 12.8, hematocrit of 41, platelets of 171, 75% neutrophils. INR is 1.02. Chemistry showed sodium 135, potassium 4.2, chloride of 101, bicarb 17 , anion gap of 17, BUN of 15, creatinine of 1.3, glucose of 128, lactic acid is 10.5. LFTs are normal. TSH is 0.68. Serum alcohol level was less than 10. EKG done on 09/02/16 at 1435 showed sinus tachycardia at 105 beats per minute with suggestion of LVH. No significant change when compared to his prior EKG from June. At that time, he was bradycardic. CT of the brain without contrast showed no acute intracranial pathology. ASSESSMENT AND PLAN: 1. Mr. Jackson is a 65-year-old male with a past medical history of schizophrenia , hyperlipidemia, hypertension who was brought into the emergency room after having seizures at his home. The patient is unable to give any history at this point because he does not remember, so he is able to tell me he had a seizure because the ambulance crew told him. He is going to be admitted to the telemetry floor for further workup. As far as he knows, he had no recent medication changes. He states that he does not drink alcohol. He will have an MRI of the brain without contrast and EEG and Neurology consultation already requested with Dr. Howard. The patient is already on valproic acid 1000 mg p.o. b.i.d. as outpatient. So, we will discuss what other medications can be tried. He will be on neurological checks and he will have seizure precautions. 2. Anion gap metabolic acidosis. This is similar to lactic acidosis associated with seizure. The patient is going to receive IV fluids and we will repeat his lactic acid later tonight. 3. Creatinine elevation. It is unclear to me at this point if he has chronic kidney disease. We will give IV hydration and monitor his renal function. For now, I will continue his antihypertensives. 4. Schizophrenia. We will continue clonazepam, Zyprexa, valproic acid. 5. Hyperlipidemia. We will continue atorvastatin. 6. DVT prophylaxis. The patient has a score of 3 on the DVT Prophylaxis Risk Assessment Guide, and he will be started on heparin. 7. Code status. The patient has an out of the hospital do not resuscitate. TIME SPENT: Approximately 50 minutes were spent with the patient interview, medical records review, physical examination to complete this admission, and more than half this time was spent [id number] with the patient in coordination of care. CC: ROSIBEL Bowser * [id number]/[facility] #: [id number] [id number]/[facility] #: [id number] ALEC
[2016-09-03] MEDS: NS 0.9% 1000 ML* 1,000 ML IV SCH (03:45)
[2016-09-03] MEDS: Heparin VIAL(*) 5000 UNITS/ML VIAL (FIVE THOUSAND) SUBCUT SCH ×3 (05:20→21:02)
[2016-09-03 07:00] LABS: BUN/Creatinine Ratio 12.9 (8-20); Calcium 9.7 mg/dL (8.6-10.3); Potassium 3.9 mmol/L (3.5-5.0)
[2016-09-03] MEDS: Cyanocobalamin TAB* 500 MCG PO SCH (08:29)
[2016-09-03] MEDS: Valproic Acid CAP(*) 250 MG PO SCH (08:29)
[2016-09-03] MEDS: Lisinopril TAB* 5 MG PO SCH (08:29)
[2016-09-03] MEDS ORDERED: Divalproex DR TAB(*) 500 MG PO SCH (09:00)
--- NOTE | 2016-09-03 09:50 | ECHO ---
Patient: ROWAN SOLANO [facility] Rec#: [id number] : 1950 Date: 09/03/2016 Age: 65y Height: 175.26 cm / 69.0 in Weight: 79.38 kg / 175.0 lbs Sex: M BSA: 1.95 Room#: [facility] Admit Date#: 09/02/2016 Type: Inpatient Referring: Floyd Kessler MD Reading: Shashank Shipley MD Breaker Tender: María Corona [facility] Breaker Tender: Camilla Cuello Transthoracic Echocardiogram Indication: Syncope, seizure BP: 177/67 HR: 59 Rhythm: Bradycardia Findings History: HTN, HLD, mental health history, former smoker. Technical Comments: The study quality is good. The study is technically limited due to the patient's smoking history. Completed at 0905. Left Ventricle: The left ventricular chamber size is normal. Mild concentric left ventricular hypertrophy is observed. The left ventricle appears hyperdynamic. The estimated ejection fraction is greater than 65%. Abnormal left ventricular diastolic filling is observed, consistent with impaired relaxation. Left Atrium: The left atrium is mildly dilated. Right Ventricle: Moderator Band present. The right ventricle is slightly dilated. The right ventricular global systolic function is normal. Right Atrium: The right atrium is mildly dilated. Aortic Valve: The aortic valve is trileaflet. There is evidence of aortic sclerosis without stenosis. There is a trace of aortic regurgitation. There is borderline aortic stenosis present.The increased velocity may be due to hyperdynamic LV systolic function. The highest aortic valve velocity was obtained with the standard probe from the A5C view. Mitral Valve: The mitral valve leaflets are mildly thickened. There is a trace of mitral regurgitation. There is no evidence of mitral stenosis. Tricuspid Valve: The tricuspid valve leaflets are normal. There is trace tricuspid regurgitation. There is evidence of pulmonary hypertension. There is no tricuspid stenosis. Pulmonic Valve: The pulmonic valve appears normal. There is a trace pulmonic regurgitation. There is no pulmonic stenosis. Pericardium: There is no significant pericardial effusion. Aorta: There is no dilatation of the ascending aorta. There is no dilatation of the aortic arch. There is no dilation of the aortic root. Pulmonary Artery: The main pulmonary artery appears normal. Venous: The inferior vena cava appears normal in size. There is a greater than 50% respiratory change in the inferior vena cava dimension. Conclusions Mild concentric left ventricular hypertrophy is observed. The left ventricle appears hyperdynamic. The estimated ejection fraction is greater than 65%. The left atrium is mildly dilated. The right atrium is mildly dilated. No significant valvular disease: There is a trace of mitral regurgitation. There is trace tricuspid regurgitation. There is a trace pulmonic regurgitation. There is a trace of aortic regurgitation. There is borderline aortic stenosis present. Compared to report of study from 07/01/2016 there is no significant change. Measurements Name Value Normal Range RVIDd (AP) 2D 3 cm (0.9 - 2.6) RVDdMajor (2D) 3.9 cm (2.2 - 4.4) RAd ISD 4CH 5.5 cm (3.4 - 4.9) RA (A4C)W 5.7 cm (2.9 - 4.6) IVSd (2D) 1.1 cm (0.6 - 1) LVPWd (2D) 1.1 cm (0.6 - 1) LVIDd (2D) 4.3 cm (3.6 - 5.4) LVIDs (2D) 2.4 cm - LV FS (2D) 43 % (25 - 45) Aortic Annulus 2.1 cm (1.4 - 2.6) Ao root diameter (2D) 2.6 cm (2.1 - 3.5) Ascending Ao 2.6 cm (2.1 - 3.4) Aortic arch 2.1 cm (1.8 - 3.4) LA dimension (AP) 2D 4.1 cm (2.3 - 3.8) LAd ISD 4CH 5.1 cm (2.9 - 5.3) LA ISD 4CH W 4.9 cm (2.5 - 4.5) Name Value Normal Range LA ESV SP 4CH (A/L) 81 ml - LA ESV SP 2CH (A/L) 87 ml - LA ESV BP (A/L) 87 ml - LA ESV BP (A/L) index 44.69 ml/m2 - LA ESV SP 4CH (MOD) 71 ml - LA ESV SP 2CH (MOD) 79 ml - Name Value Normal Range MV E-wave Vmax 0.72 m/sec - MV deceleration time 224 msec - MV A-wave Vmax 0.91 m/sec - MV E:A ratio 0.8 ratio - LV septal e' Vmax 0.1 m/sec - LV lateral e' Vmax 0.08 m/sec - LV E:e' septal ratio 7.2 ratio - LV E:e' lateral ratio 9 ratio - Name Value Normal Range AV Vmax 2.25 m/sec - AV VTI 43.8 cm - AV peak gradient 20.31 mmHg - AV mean gradient 9.64 mmHg - LVOT diameter 2 cm - LVOT Vmax 1.6 m/sec - LVOT VTI 31 cm - LVOT peak gradient 9.83 mmHg - LVOT mean gradient 3.29 mmHg - DOI (VTI) 0.71 ratio - NIC (continuity Vmax) 2.2 cm2 - NIC (continuity VTI) 2.2 cm2 - MELISSA Vmax 0.92 m/sec - Name Value Normal Range TR Vmax 2.9 m/sec - TR peak gradient 34 mmHg - RAP 3 mmHg - RVSP 37 mmHg - IVC diameter 1.8 cm - Name Value Normal Range PV Vmax 1.25 m/sec - PV peak gradient 6.3 mmHg -
[2016-09-03] MEDS ORDERED: Iohexol 300* (CONTRAST) 10 ML SDV IV ONE (16:15)
--- NOTE | 2016-09-03 18:04 | PN ---
Subjective Date of Service: 09/03/16 Interval History: Pt refused MRI and CT brain with contrast today. stated he is too anxious to have it done, refused to try it with an anxiety medication poor historian, relates head injury in a tractor accident 18 years ago Objective Active Medications: Atorvastatin Calcium (Lipitor*) 20 mg PO BEDTIME [facility] Last Admin: 09/02/16 20:01 Dose: 20 mg Clonazepam (Klonopin Tab(*)) 0.5 mg PO BID PRN PRN Reason: ANXIETY Cyanocobalamin (Vitamin B12 Tab*) 1,000 mcg PO DAILY [facility] Last Admin: 09/03/16 08:29 Dose: 1,000 mcg Docusate Sodium (Colace Cap*) 100 mg PO BEDTIME PRN PRN Reason: CONSTIPATION Emollient Ointment (Lubriderm Lotion 480 Ml Btl*) 1 applic TOPICAL TID PRN PRN Reason: DRY SKIN Heparin Sodium (Porcine) (Heparin Vial(*)) 5,000 units SUBCUT Q8HR [facility] Last Admin: 09/03/16 13:11 Dose: 5,000 units Hydralazine HCl (Apresoline Iv*) 10 mg IV SLOW PU Q6H PRN PRN Reason: SBP>180 Last Admin: 09/02/16 20:26 Dose: 10 mg Lisinopril (Prinivil Tab*) 5 mg PO DAILY [facility] Last Admin: 09/03/16 08:29 Dose: 5 mg Meclizine HCl (Antivert Tab*) 12.5 mg PO Q8HR PRN PRN Reason: DIZZINESS Olanzapine (Zyprexa Tab*) 10 mg PO BEDTIME [facility] Last Admin: 09/02/16 20:01 Dose: 10 mg Senna (Senokot Tab*) 2 tab PO BEDTIME PRN PRN Reason: CONSTIPATION Valproic Acid (Depakene Cap(*)) 1,500 mg PO QPM [facility] Valproic Acid (Depakene Cap(*)) 1,000 mg PO QAM [facility] Last Admin: 09/03/16 08:29 Dose: 1,000 mg Vital Signs 09/03/16 09/03/16 11:55 14:48 Temperature 97.9 F 98.2 F Pulse Rate 63 Respiratory 16 20 Rate Blood Pressure 148/50 143/45 (mmHg) O2 Sat by Pulse 100 100 Oximetry Oxygen Devices in Use Now: None Appearance: 65 yo M in NAd, aAOx3 Eyes: No Scleral Icterus, PERRLA Ears/Nose/Mouth/Throat: NL Teeth, Lips, Gums, Mucous Membranes Moist Neck: NL Appearance and Movements; NL JVP, Trachea Midline Respiratory: Symmetrical Chest Expansion and Respiratory Effort, Clear to Auscultation Cardiovascular: NL Sounds; No Murmurs; No JVD, RRR Abdominal: NL Sounds; No Tenderness; No Distention, No Hepatosplenomegaly Lymphatic: No Cervical Adenopathy Extremities: No Edema, No Clubbing, Cyanosis Skin: No Rash or Ulcers, No Nodules or Sclerosis Neurological: Alert and Oriented x 3, NL Muscle Strength and Tone Result Diagrams: 09/02/16 14:53 09/03/16 05:57 Additional Lab and Data: Lab Results 09/02/16 09/02/16 09/02/16 Range/Units 14:53 14:53 14:53 WBC 5.0 (3.5-10.8) 10^3/ul RBC 4.71 (4.0-5.4) 10^6/ul Hgb 12.8 L (14.0-18.0) g/dl Hct 41 L (42-52) % MCV 86 (80-94) fL MCH 27 (27-31) pg MCHC 32 (31-36) g/dl RDW 17 H (10.5-15) % Plt Count 171 (150-450) 10^3/ul MPV 9 (7.4-10.4) um3 Neut % (Auto) 75.6 (38-83) % Lymph % (Auto) 11.9 L (25-47) % [place] % (Auto) 11.3 H (1-9) % Eos % (Auto) 0.5 (0-6) % Baso % (Auto) 0.7 (0-2) % Absolute Neuts (auto) 3.8 (1.5-7.7) 10^3/ul Absolute Lymphs (auto) 0.6 L (1.0-4.8) 10^3/ul Absolute Monos (auto) 0.6 (0-0.8) 10^3/ul Absolute Eos (auto) 0 (0-0.6) 10^3/ul Absolute Basos (auto) 0 (0-0.2) 10^3/ul Absolute Nucleated RBC 0 10^3/ul Nucleated RBC % 0.1 INR (Anticoag Therapy) 1.02 (0.89-1.11) Sodium 135 (133-145) mmol/L Potassium 4.2 (3.5-5.0) mmol/L Chloride 101 (101-111) mmol/L Carbon Dioxide 17 L (22-32) mmol/L Anion Gap 17 H (2-11) mmol/L BUN 15 (6-24) mg/dL Creatinine 1.30 H (0.67-1.17) mg/dL Est GFR ( Amer) 71.0 (>60) Est GFR (Non-Af Amer) 55.2 (>60) BUN/Creatinine Ratio 11.5 (8-20) Glucose 128 H (70-100) mg/dL Lactic Acid (0.5-2.0) mmol/L Calcium 10.2 (8.6-10.3) mg/dL Magnesium 2.7 (1.9-2.7) mg/dL Total Bilirubin 0.40 (0.2-1.0) mg/dL AST 28 (13-39) U/L ALT 21 (7-52) U/L Alkaline Phosphatase 59 (34-104) U/L Troponin I 0.03 (<0.04) ng/mL Total Protein 7.7 (6.4-8.9) g/dL Albumin 4.5 (3.2-5.2) g/dL Globulin 3.2 (2-4) g/dL Albumin/Globulin Ratio 1.4 (1-3) TSH 0.68 (0.34-5.60) mcIU/mL Serum Alcohol < 10 (<10) mg/dL 09/02/16 Range/Units 14:53 WBC (3.5-10.8) 10^3/ul RBC (4.0-5.4) 10^6/ul Hgb (14.0-18.0) g/dl Hct (42-52) % MCV (80-94) fL MCH (27-31) pg MCHC (31-36) g/dl RDW (10.5-15) % Plt Count (150-450) 10^3/ul MPV (7.4-10.4) um3 Neut % (Auto) (38-83) % Lymph % (Auto) (25-47) % [place] % (Auto) (1-9) % Eos % (Auto) (0-6) % Baso % (Auto) (0-2) % Absolute Neuts (auto) (1.5-7.7) 10^3/ul Absolute Lymphs (auto) (1.0-4.8) 10^3/ul Absolute Monos (auto) (0-0.8) 10^3/ul Absolute Eos (auto) (0-0.6) 10^3/ul Absolute Basos (auto) (0-0.2) 10^3/ul Absolute Nucleated RBC 10^3/ul Nucleated RBC % INR (Anticoag Therapy) (0.89-1.11) Sodium (133-145) mmol/L Potassium (3.5-5.0) mmol/L Chloride (101-111) mmol/L Carbon Dioxide (22-32) mmol/L Anion Gap (2-11) mmol/L BUN (6-24) mg/dL Creatinine (0.67-1.17) mg/dL Est GFR ( Amer) (>60) Est GFR (Non-Af Amer) (>60) BUN/Creatinine Ratio (8-20) Glucose (70-100) mg/dL Lactic Acid 10.5 H* (0.5-2.0) mmol/L Calcium (8.6-10.3) mg/dL Magnesium (1.9-2.7) mg/dL Total Bilirubin (0.2-1.0) mg/dL AST (13-39) U/L ALT (7-52) U/L Alkaline Phosphatase (34-104) U/L Troponin I (<0.04) ng/mL Total Protein (6.4-8.9) g/dL Albumin (3.2-5.2) g/dL Globulin (2-4) g/dL Albumin/Globulin Ratio (1-3) TSH (0.34-5.60) mcIU/mL Serum Alcohol (<10) mg/dL Assess/Plan/Problems-Billing Assessment: 65 yo M with h/o schizophrenia, dyslipidemia, HTN presents with new onset seizure - Patient Problems (1) Schizophrenia Comment: Continue home medications. Valproic acid level below detectable-suspect pt had not been taking his meds as directed. (2) Seizure Comment: D/w Dr. Howard EEG unremarkable. MRI /CT brain with contrast recommended, but pt refused. cont Valpoic acid at increased dose monitor on seizure precautions overnight, planned d/c in AM Echo shows EF 65%, no arrythmia noted on telem (3) HTN (hypertension) Comment: Continue lisinopril , controlled Status and Disposition: inpatient. will d/c telem plan to d/c likely tomorrow
--- NOTE | 2016-09-03 18:26 | CONS ---
NEUROLOGY CONSULTATION: DATE OF CONSULT: 09/03/16 REFERRING PHYSICIAN: Dr. Kessler. LOCATION: He is an inpatient in room 446. CHIEF COMPLAINT: Seizure. HISTORY OF PRESENT ILLNESS: Vahe Jackson is a 65-year-old right-handed man, who was admitted yesterday afternoon after an observed seizure at his home at the [facility]. He does not have any history of prior seizures. He says that he recalls feeling his eyes fluttering and deviating and the next thing he knew he was on the ground. The ambulance crew and the people at [facility] told me that he had a seizure. He apparently had a second seizure witnessed by the ambulance crew because he was given Versed and described as combative. He was lethargic in the emergency room. By the time he was evaluated by Dr. Whitten later that afternoon, he was cooperative and able to give a coherent history. He had a number of studies including a CT of the brain , which I reviewed and it does not reveal any clear-cut abnormalities, although there is some potential left anterior temporal lobe atrophy. He is on Depakote 1000 mg twice per day for mood disorder for psychiatric problems. Does not have a history of epilepsy. He denies a history of head trauma or meningitis or family history of seizures. He is on parenteral Haldol 100 mg, I believe, a week as well as olanzapine 10 mg p.o. at bedtime, but he says that none of his medicines have been changed recently. He is also on Klonopin 0.5 mg twice per day as needed for agitation, which he says he gets periodically. PAST MEDICAL HISTORY: Notable for schizophrenia, hypertension, hyperlipidemia, possible [place] in 2017. MEDICATIONS: At home are: 1. Haldol Decanoate 100 mg IM q. month. 2. Olanzapine 10 mg p.o. q.h.s. 3. Clonazepam 0.5 mg b.i.d. p.r.n. anxiety. 4. Vitamin D 50,000 units p.o. q. week. 5. Cyanocobalamin 100 mcg p.o. q. day. 6. Lisinopril 5 mg p.o. q. day. 7. Naproxen 500 mg p.o. b.i.d. p.r.n. joint pain. 8. Depakote 1000 mg p.o. b.i.d. ALLERGIES: He is allergic to PENICILLIN and RISPERIDONE. FAMILY HISTORY: Negative for epilepsy. REVIEW OF SYSTEMS: Negative for tremor or unsteadiness. He denies headache. He does not feel that he has bitten his tongue and does not have any sore muscles or back pain. He denies head trauma or meningitis. He says his weight has not changed recently and no fever or chills. PHYSICAL EXAM: He is well-nourished and well-hydrated. Temperature 97.9, blood pressure 148/50, heart rate 72 and regular, respirations 16, oxygen saturations are 100% on room air. Head is atraumatic. Oral mucosa is moist and atraumatic. Heart is in a regular rate and rhythm without murmurs. Carotid pulses are present and there are no cervical bruits. Lungs are clear. Neurologically, pupils and fundi are normal. Eye movements and visual groves are normal as well. Facial musculature is symmetric. Facial sensation to light touch is symmetric. He has mild decreased facial expression. Speech is soft and monotone, but clear. Palate rises symmetrically. Hearing is intact bilaterally. Neck strength is normal. Motor exam reveals normal muscle tone and strength in the limbs proximally and distally. There is no rigidity. He has a mild irregular sustention tremor in the hands. Finger taps are normal bilaterally. Reflexes are hypoactive, but present and symmetric. Plantars are flexor. I did not attempt to ambulate him. He is alert and oriented and able to provide some meaningful history. There is a paucity of verbal output. Language is simple, but fluent. LABORATORY DATA: Includes a valproic acid level yesterday evening of less than 13. Chemistry profile on admission notable for carbon dioxide of 17, creatinine 1.3, lactic acid 10.5 which came down to 1.1 within 4 hours of admission. CBC is normal today as is chemistry profile. IMPRESSION: New-onset seizure disorder. Although he is listed as getting Depakote twice per day, is an undetectable level, so he may be spitting it out or in some other way not obtaining it. It is unlikely he is getting 2000 mg of Depakote a day with an undetectable level. He is refusing an MRI. His EEG has been done and I will read that, the results are pending. I think a CT scan is adequate for now, but if he changes his mind, then I would recommend getting an MRI. Alternatively, we could get a CT scan with contrast. I will speak with the hospitalist. [id number]/[facility] #: [id number] ALEC
--- NOTE | 2016-09-03 18:34 | EEG ---
ELECTROENCEPHALOGRAPHY: DATE OF STUDY: 09/03/16 LOCATION: He is in inpatient in room 446. REFERRING PROVIDER: Dr. Kessler. CLINICAL PROBLEM: New-onset seizure. MEDICATIONS: 1. Haldol Decanoate. 2. Olanzapine. 3. Depakene. 4. Lisinopril. REPORT: This 16-channel EEG is remarkable for background activity consisting of a well-formed alpha rhythm in the posterior derivations at about 10 cycles per second which is reasonably symmetric and suppressed by eye opening. Movement and muscle artifact are fairly abundant through portions of the tracing. The patient talks frequently and moves his eyes around quite a bit. Activation procedures are not attempted. Sleep stages are not recognized. There are no focal, lateralized, or epileptiform abnormalities. CLINICAL IMPRESSION: Normal limited EEG due to movement artifact. There are no focal or epileptiform discharges. CC: Corin Mills* [id number]/[facility] #: [id number] MTDD
[2016-09-03 20:46] LABS: Urine Bacteria Absent (Absent); Urine Bilirubin Negative (Negative); Urine Glucose Negative (Negative); Urine Nitrite Negative (Negative)
[2016-09-03] MEDS: Atorvastatin* 20 MG TAB PO SCH (21:02)
[2016-09-03] MEDS: OLANzapine TAB* 10 MG PO SCH (21:02)
[2016-09-04 01:39] VITALS: BP 146/58
[2016-09-04] MEDS: Heparin VIAL(*) 5000 UNITS/ML VIAL (FIVE THOUSAND) SUBCUT SCH (05:45)
[2016-09-04] MEDS: Lisinopril TAB* 5 MG PO SCH (07:54)
[2016-09-04] MEDS: Cyanocobalamin TAB* 500 MCG PO SCH (07:54)
[2016-09-04] MEDS: Valproic Acid CAP(*) 250 MG PO SCH (07:54)
[2016-09-04] MEDS ORDERED: Valproic Acid CAP(*) 250 MG PO SCH (18:00)
--- NOTE | 2016-09-04 22:30 | DS ---
DISCHARGE SUMMARY: DATE OF ADMISSION: 09/02/16 DATE OF DISCHARGE: 09/04/16 PRIMARY CARE PROVIDER: ROSIBEL Bowser. DISCHARGE DIAGNOSIS: New-onset seizure. SECONDARY DIAGNOSES: 1. Hyperlipidemia. 2. Schizophrenia. 3. Hypertension. 4. Questionable myocardial infarction in June 2016. MEDICATIONS AT DISCHARGE: Include: 1. Lipitor 20 mg at bedtime. 2. Vitamin B12 1000 mcg daily. 3. Eucerin topical p.r.n. 4. Vitamin D2 84812 units p.o. weekly. 5. Haldol 100 mg IM p.r.n. 6. Lisinopril 5 mg daily. 7. Meclizine 12.5 mg every 8 hours p.r.n. 8. Naproxen 500 mg b.i.d. p.r.n. 9. Zyprexa 10 mg p.o. at bedtime. 10. Senna 2 tablets at bedtime. 11. Urea 20% topical to the affected skin t.i.d. p.r.n. 12. Valproic acid 1000 mg b.i.d. and additional 500 mg at bedtime. 13. Clonazepam 0.5 mg b.i.d. p.r.n. Please note that the only change is increase of the patient's Depakene or valproic acid dose from initial 1000 b.i.d. which was prior to hospital stay to a 1000 mg in the morning and a 1500 mg at night. CONSULTATIONS DURING THE HOSPITAL STAY: Included Dr. Howard from Neurology. LABORATORY DATA/STUDIES: Performed during the hospital stay included: On 09/03, sodium 136, potassium 3.9, chloride 106, carbon dioxide 23, BUN 15, creatinine 1.16. CPK was slightly elevated to 371. TSH was 0.6 at admission. Liver function tests were unremarkable and troponin of 0.03. Urinalysis showed trace ketones. Valproic acid was below detectable. Serum alcohol was below detectable. EEG: Impression: Normal limited EEG due to movement artifact. There are no focal or epileptiform changes. Transesophageal echocardiogram showed marked concentric LVH, EF of 65% with mild dilation of right atrium and no significant valvular heart disease. There was trace of mitral regurgitation and trace of tricuspid regurgitation. There are no significant changes noted comparing with the study from June 2016. CT of the brain obtained at admission was unremarkable. Please note that the patient refused MRI and CT of the brain with contrast that both of the studies were recommended by the neurologist, Dr. Howard. HOSPITALIZATION COURSE: Vahe Jackson is a 65-year-old male with history of schizophrenia who presented after a witnessed seizure at [facility] where he is resident of. Please see details of the patient's presentation in history and physical dictated at admission as well as Dr. Howard's consultation. Shortly, the patient's lactic acid was elevated at admission, which was consistent with most likely a seizure episode. The patient stated that he had been on Depakote for "mood control." But his Depakote level was undetectable at admission. It was thought that most likely the patient has history of medical low compliance. The patient was placed on increased dose of Depakote which was continued throughout his hospital stay. Nearly 20 hours of telemetry monitoring failed to note any arrhythmias. His transthoracic echocardiogram was unremarkable. His EEG was also unremarkable. The patient has history of most likely traumatic brain injury and 18 years ago, he hit his head and as he mentioned had most likely small skull fracture noted after falling off the tractor. Dr. Howard saw the patient in consultation and apart from increase in Depakote , he recommended either an MRI of the brain or CT of the brain with contrast. Both of the studies were refused by the patient. The patient was observed for another 24 hours and no seizure episodes were noted. He was compliant with his medications in the hospital. He is going to be discharged home to [facility] with recommendation to have valproic acid level drawn in a week and the report to be sent to Dr. Howard. The patient is also recommended to be not driving and I do not think he had been driving in the past several years. Followup with his primary care provider in approximately 4 to 7 days. The patient was also recommended to follow up with Dr. Howard in approximately 1 to 2 months. PHYSICAL EXAMINATION AT DISCHARGE: Unremarkable. Vitals: Blood pressure of 146/58, heart rate of 55 and regular, respiratory rate 20, oxygen saturation 96 % on room air, temperature 98.4. General: The patient is a very pleasant 65- year-old male, who is in no acute distress. The patient is alert, awake and oriented x3. He is a rather poor historian. HEENT: Head is atraumatic, normocephalic. Eyes: Pupils equal and reactive to light and accommodation. Oropharynx clear. Mucosa moist. Neck: Supple. No JVD. No bruits bilaterally. Cardiovascular: Regular rate and rhythm. No murmur. Respiratory : Clear to auscultation bilaterally. Abdomen: Soft, nontender. Bowel sounds present in all 4 quadrants. Extremities: There is no edema. Pulses +2 bilaterally. No clubbing or cyanosis. Neuro Evaluation: Speech clear. Cranial nerves II through XII grossly intact. Motor strength is 5/5 bilaterally. Please note this is a short summary of the patient's hospital stay. Please refer to further medical records for details. TIME SPENT: Approximately 45 minutes were spent on the patient's discharge. CC: ROSIBEL Bowser, [employer], [place]; Grey Howard MD* [id number]/[facility] #: [id number] MTD
== END 2016-09-04 13:05 | disposition home or self-care (01) | DRG 101 ==
LOC: ED 14:33 → MEDTELE 17:40 → OBSVTOIN 09-03 09:30
PROVIDERS: ADMIT Internal Medicine; ATTEND Internal Medicine
PROC: 4A00X4Z Measurement of Central Nervous Electrical Activity, External Approach (ICD-10-PCS; principal; 2016-09-03)
DX: G40.909 Epilepsy, unspecified, not intractable, without status epilepticus (principal); E87.2 Acidosis; F20.9 Schizophrenia, unspecified; E78.00 Pure hypercholesterolemia, unspecified; E78.5 Hyperlipidemia, unspecified; I10 Essential (primary) hypertension; M19.90 Unspecified osteoarthritis, unspecified site; F43.10 Post-traumatic stress disorder, unspecified; Z53.29 Procedure and treatment not carried out because of patient's decision for other reasons; I08.1 Rheumatic disorders of both mitral and tricuspid valves; Z88.8 Allergy status to other drugs, medicaments and biological substances; Z88.0 Allergy status to penicillin; Z87.891 Personal history of nicotine dependence; Z91.14 Patient's other noncompliance with medication regimen; Z87.820 Personal history of traumatic brain injury
CPT/HCPCS: 36415; 70450; 80048; 80053; 80164; 80320; 81003; 81015; 82550; 83605; 83735; 84443; 84484; 85025; 85610; 87086; 93005; 93306; 95816; A9270-GY; G0378; G0480; J0360; J1644

== ENCOUNTER 2016-12-29 22:27 | Emergency (ER) | payer MEDICARE, OTHER ==
[2016-12-29 22:43] VITALS: BP 184/86
[2016-12-30 01:00] LABS: Hematocrit 42 % (42-52); Hemoglobin 14.3 g/dl (14.0-18.0); Mean Corpuscular HGB Conc 34 g/dl (31-36); Mean Corpuscular Hemoglobin 31 pg (27-31); Mean Corpuscular Volume 91 fL (80-94); Mean Platelet Volume 9 um3 (7.4-10.4); Red Blood Count 4.62 10^6/ul (4.0-5.4); Red Cell Distribution Width 19 % (10.5-15); White Blood Count 4.6 10^3/ul (3.5-10.8)
[2016-12-30 01:15] LABS: ALT 35 U/L (7-52); AST 31 U/L (13-39); Albumin 4.5 g/dL (3.2-5.2); Alkaline Phosphatase 87 U/L (34-104); Anion Gap 5 mmol/L (2-11); BUN/Creatinine Ratio 18.8 (8-20); Blood Urea Nitrogen 19 mg/dL (6-24); CO2 Carbon Dioxide 26 mmol/L (22-32); Calcium 9.9 mg/dL (8.6-10.3); Chloride 102 mmol/L (101-111); EGFR African American 94.8 (>60); EGFR Non-African American 73.7 (>60); Globulin 3.1 g/dL (2-4); Glucose 82 mg/dL (70-100); Potassium 4.2 mmol/L (3.5-5.0); Sodium 133 mmol/L (133-145); Total Protein 7.6 g/dL (6.4-8.9)
[2016-12-30 01:24] LABS: Acetaminophen < 15 mcg/mL; Alcohol < 10 mg/dL (<10); Salicylate < 2.50 mg/dL (<30)
[2016-12-30 01:35] LABS: TSH (Thyroid Stimulating Horm) 1.44 mcIU/mL (0.34-5.60)
--- NOTE | 2016-12-30 02:53 | ED ---
Psychiatric Complaint - HPI Summary HPI Summary: Pt brought in 941 by [facility] for threatening staff at the [facility]. Reports pt stating "You're going to regret that" Pt states he requested his medications. [facility] staff was with another pt and then received his medications a short time later. He was unhappy that he was asked "why do you need your meds " which made him angry. No assault or harm to others. Denies suicidal and homicidal thoughts at this time. Denies attempt at self harm. No other complaints at this time. Feels well. Denies current hallucinations or hearing voices. Lives at [facility]. Denies alcohol or drug use. Did take his daily medications today. PMHx significant for mood disorder, paranoid schizophrenia and HTN, high cholesterol. Not having symptoms currently. - History Of Current Complaint Chief Complaint: EDMentalHealth Time Seen by Provider: 12/30/16 00:48 Hx Obtained From: Patient, Other: - PD Onset/Duration: Sudden Onset Timing: Minutes Severity Initially: Mild Severity Currently: None Character: Angry Aggravating Factor(s): Other - medical staff at [facility] Alleviating Factor(s): Medication Associated Signs And Symptoms: Positive: Hostile. Negative: Hallucinating, Paranoid Behavior Related History: Positive For: Prior Psychiatric Issues Has Suicidal: Denies: Thoughts, With A Plan Has Homicidal: Denies: Thoughts, With A Plan - Allergies/Home Medications Allergies/Adverse Reactions: Allergies Allergy/AdvReac Type Severity Reaction Status Date / Time Penicillins Allergy Unknown Verified 12/29/16 22:40 Reaction Details Risperidone Allergy Unknown Verified 12/29/16 22:40 Reaction Details PMH/Surg Hx/FS Hx/Imm Hx Endocrine/Hematology History: Denies: Hx Diabetes Cardiovascular History: Reports: Hx Hypercholesterolemia, Hx Hypertension, Other Cardiovascular Problems/Disorders - HLD Denies: Hx Angina, Hx Coronary Artery Disease, Hx Myocardial Infarction, Hx Pacemaker/ICD, Hx Valvular Heart Disease Respiratory History: Denies: Hx Asthma, Hx Chronic Obstructive Pulmonary Disease (COPD) Musculoskeletal History: Reports: Hx Arthritis Sensory History: Reports: Hx Contacts or Glasses Denies: Hx Hearing Aid Opthamlomology History: Reports: Hx Contacts or Glasses Psychiatric History: Reports: Hx Post Traumatic Stress Disorder, Hx Schizophrenia Denies: Hx Panic Disorder - Immunization History Immunizations Up to Date: Yes Infectious Disease History: No Infectious Disease History: Denies: Traveled Outside the [place] in Last 30 Days - Family History Known Family History: Positive: Unknown - Patient is a poor historian. - Social History Alcohol Use: None Substance Use Type: Reports: None Smoking Status (MU): Former Smoker Review of Systems Constitutional: Negative Cardiovascular: Negative Respiratory: Negative Gastrointestinal: Negative Musculoskeletal: Negative Skin: Negative Neurological: Negative Psychological: Normal All Other Systems Reviewed And Are Negative: Yes Physical Exam Triage Information Reviewed: Yes Vital Signs On Initial Exam: Initial Vitals Temp Pulse Resp BP Pulse Ox 97.6 F 73 16 184/66 100 12/29/16 22:35 12/29/16 22:35 12/29/16 22:35 12/29/16 22:35 12/29/16 22:35 elevated BP noted, patient angry and brought in by police. will re-check. diagnosed with HTN states he did get his meds today, per patient. Vital Signs Reviewed: Yes Appearance: Positive: Well-Appearing, No Pain Distress, Well-Nourished Skin: Positive: Warm, Skin Color Reflects Adequate Perfusion, Dry. Negative: Cold, Numb, Cyanosis @, Pale, Erythema @ Head/Face: Positive: Normal Head/Face Inspection Eyes: Positive: EOMI, DEBBIE, Conjunctiva Clear ENT: Positive: Normal ENT inspection, Hearing grossly normal, Pharynx normal, TMs normal Neck: Positive: Supple, Nontender Respiratory/Lung Sounds: Positive: Clear to Auscultation, Breath Sounds Present. Negative: Rales, Rhonchi, Wheezes Cardiovascular: Positive: Normal, RRR, Pulses are Symmetrical in both Upper and Lower Extremities. Negative: Murmur, Rub Abdomen Description: Positive: Nontender, Soft Bowel Sounds: Positive: Present Musculoskeletal: Positive: Normal, Strength/ROM Intact Neurological: Positive: Normal, Sensory/Motor Intact, Alert, Oriented to Person Place, Time, Reflexes Intact, NV Bundle Intact Distally, Normal Gait Psychiatric: Positive: Affect/Mood Appropriate - frustrated when speaking about situation that is the cause for his visit to ED, however not violent or angry while in Ed, very cooperative and calm - Alexander Coma Scale Best Eye Response: 4 - Spontaneous Best Motor Response: 6 - Obeys Commands Best Verbal Response: 5 - Oriented Coma Scale Total: 15 Diagnostics - Vital Signs Vital Signs Temp Pulse Resp BP Pulse Ox 12/30/16 01:58 98.7 F 65 16 100 12/29/16 22:41 97.6 F 73 16 184/86 100 12/29/16 22:35 97.6 F 73 16 184/66 100 - Laboratory Lab Results: Lab Results 12/30/16 12/30/16 Range/Units 00:51 00:51 WBC 4.6 (3.5-10.8) 10^3/ul RBC 4.62 (4.0-5.4) 10^6/ul Hgb 14.3 (14.0-18.0) g/dl Hct 42 (42-52) % MCV 91 (80-94) fL MCH 31 (27-31) pg MCHC 34 (31-36) g/dl RDW 19 H (10.5-15) % Plt Count 125 L (150-450) 10^3/ul MPV 9 (7.4-10.4) um3 Neut % (Auto) 50.0 (38-83) % Lymph % (Auto) 35.4 (25-47) % [place] % (Auto) 11.4 H (1-9) % Eos % (Auto) 2.2 (0-6) % Baso % (Auto) 1.0 (0-2) % Absolute Neuts (auto) 2.3 (1.5-7.7) 10^3/ul Absolute Lymphs (auto) 1.6 (1.0-4.8) 10^3/ul Absolute Monos (auto) 0.5 (0-0.8) 10^3/ul Absolute Eos (auto) 0.1 (0-0.6) 10^3/ul Absolute Basos (auto) 0 (0-0.2) 10^3/ul Absolute Nucleated RBC 0.01 10^3/ul Nucleated RBC % 0.2 Sodium 133 (133-145) mmol/L Potassium 4.2 (3.5-5.0) mmol/L Chloride 102 (101-111) mmol/L Carbon Dioxide 26 (22-32) mmol/L Anion Gap 5 (2-11) mmol/L BUN 19 (6-24) mg/dL Creatinine 1.01 (0.67-1.17) mg/dL Est GFR ( Amer) 94.8 (>60) Est GFR (Non-Af Amer) 73.7 (>60) BUN/Creatinine Ratio 18.8 (8-20) Glucose 82 (70-100) mg/dL Calcium 9.9 (8.6-10.3) mg/dL Total Bilirubin 0.30 (0.2-1.0) mg/dL AST 31 (13-39) U/L ALT 35 (7-52) U/L Alkaline Phosphatase 87 (34-104) U/L Total Protein 7.6 (6.4-8.9) g/dL Albumin 4.5 (3.2-5.2) g/dL Globulin 3.1 (2-4) g/dL Albumin/Globulin Ratio 1.5 (1-3) TSH 1.44 (0.34-5.60) mcIU/mL Salicylates < 2.50 (<30) mg/dL Acetaminophen < 15 mcg/mL Serum Alcohol < 10 (<10) mg/dL Result Diagrams: 12/30/16 00:51 12/30/16 00:51 Lab Statement: Any lab studies that have been ordered have been reviewed, and results considered in the medical decision making process. Course/Dx - Course Course Of Treatment: patient was medically cleared. already had daily medications. not showing any signs of anxiety, anger or depression. cooperative. sleeping upon evaluation. was medically cleared for psych evaluation. no concern for any medical issues at this time. does not appear to be a self harm or threat to others. feel safe to send home. Spoke with veronica COREAS who states Dr Ferreira is discharging him home at 3:00am with diagnosis of encounter for psych eval. - Differential Dx/Clinical Impression Differential Diagnosis/HQI/PQRI: Positive: Acute Psychosis - schizoprhenia, Anxiety, Depression, Other Provider Diagnosis: Encounter for psychological evaluation, Feeling angry - Physician Notifications Discussed Care Of Patient With: Dr Hanna Hobson Time Discussed With Above Provider: 15:00 Instructed by Provider To: Other - home with follow up Patient Is Medically Stable For: Psych Evaluation Discharge - Discharge Plan Condition: Stable Disposition: HOME Referrals: Non Staff,Doctor [Primary Care Provider] -
== END 2016-12-30 04:00 | disposition home or self-care (01) ==
LOC: ED 22:27
DX: R45.4 Irritability and anger (principal); Z87.891 Personal history of nicotine dependence
CPT/HCPCS: 36415; 80053; 80320; 80329; 84443; 85025; 99283; G0480

== ENCOUNTER 2017-07-15 16:56 | Emergency (ER) | payer MEDICARE, OTHER ==
[2017-07-15 18:41] LABS: ABS Basophils 0.1 10^3/ul (0-0.2); ABS Eosinophils 0.1 10^3/ul (0-0.6); ABS Lymphocytes 1.4 10^3/ul (1.0-4.8); ABS Monocytes 0.6 10^3/ul (0-0.8); ABS Neutrophils 4.2 10^3/ul (1.5-7.7); ABS Nucleated RBC 0 10^3/ul; Eosinophil % 1.1 % (0-6); Hematocrit 43 % (42-52); Hemoglobin 14.5 g/dl (14.0-18.0); Lymphocyte % 22.3 % (25-47); Mean Corpuscular HGB Conc 34 g/dl (31-36); Mean Corpuscular Hemoglobin 32 pg (27-31); Mean Corpuscular Volume 94 fL (80-94); Mean Platelet Volume 10 um3 (7.4-10.4); Nucleated Red Blood Cells % 0.2; Platelet Count 134 10^3/ul (150-450); Red Blood Count 4.57 10^6/ul (4.0-5.4); Red Cell Distribution Width 15 % (10.5-15); White Blood Count 6.4 10^3/ul (3.5-10.8)
[2017-07-15 18:59] LABS: EGFR Non-African American 74.5 (>60)
[2017-07-16] MEDS ORDERED: Lisinopril TAB* 10 MG PO ONE (01:33)
[2017-07-16 03:52] LABS: Urine Appearance Clear; Urine Blood Negative (Negative); Urine Color Yellow; Urine Ketones Negative (Negative); Urine Protein Negative (Negative); Urine Specific Gravity 1.011 (1.010-1.030); Urine Urobilinogen Negative (Negative)
--- NOTE | 2017-07-16 07:19 | ED ---
Nicko Hugo Nilda, scribed for Jazzy Sanders MD on 07/16/17 at 0120 . Progress - Progress Note Progress Note: This pt was s/o by Dr. Reyes, pending dispo, awaiting MHE. [0638] Jeffrey ( Psychiatry) states pt will be D/C back to [facility] with Dx of adjustment disorder. Course/Dx - Course Course Of Treatment: This pt was s/o by Dr. Reyes, pending dispo, awaiting MHE. [0638] Jeffrey (Psychiatry) states pt will be D/C back to [facility] with Dx of adjustment disorder. - Diagnoses Provider Diagnoses: Adjustment disorder The documentation as recorded by the rupaibNicko harris Nilda accurately reflects the service I personally performed and the decisions made by me, Jazzy Sanders MD.
[2017-07-16 09:59] VITALS: BP 200/88
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
== END 2017-07-16 10:30 | disposition home or self-care (01) ==
LOC: ED 16:56
DX: F43.20 Adjustment disorder, unspecified (principal); Z88.0 Allergy status to penicillin; Z88.8 Allergy status to other drugs, medicaments and biological substances; Z87.891 Personal history of nicotine dependence
CPT/HCPCS: 36415; 80053; 80307; 81003; 84443; 85025; 99284; A9270-GY

== ENCOUNTER 2018-09-11 11:34 | Emergency (ER) | payer OTHER ==
--- NOTE | 2018-09-11 13:41 | ED ---
Psychiatric Complaint - HPI Summary HPI Summary: Pt. is a 67 y.o male who presents to the ER from the [facility] for evaluation after an "outburst." Pt. has a hx of schizophrenia. Pt. states he has been compliant with his meds. Pt. states that he got angry today when he did not get his snack. Pt. states he had "4 second outburst" that was not violent. Pt. denies any complaints or recent illness. Sxs are mild in severity. No current modifying factors. Pt. denies SI and HI. - History Of Current Complaint Chief Complaint: EDPsychosocial Time Seen by Provider: 09/11/18 11:46 Hx Obtained From: Patient, Family/Station Repairer - Allergies/Home Medications Allergies/Adverse Reactions: Allergies Allergy/AdvReac Type Severity Reaction Status Date / Time Penicillins Allergy Unknown Verified 07/15/17 19:14 Reaction Details risperidone Allergy Unknown Verified 07/15/17 19:14 Reaction Details PMH/Surg Hx/FS Hx/Imm Hx Previously Healthy: Yes Endocrine/Hematology History: Denies: Hx Diabetes Cardiovascular History: Reports: Hx Hypercholesterolemia, Hx Hypertension, Other Cardiovascular Problems/Disorders - HLD Denies: Hx Angina, Hx Coronary Artery Disease, Hx Myocardial Infarction, Hx Pacemaker/ICD, Hx Valvular Heart Disease Respiratory History: Denies: Hx Asthma, Hx Chronic Obstructive Pulmonary Disease (COPD) Musculoskeletal History: Reports: Hx Arthritis Sensory History: Reports: Hx Contacts or Glasses Denies: Hx Hearing Aid Opthamlomology History: Reports: Hx Contacts or Glasses Psychiatric History: Reports: Hx Post Traumatic Stress Disorder, Hx Schizophrenia, Hx of Violent Episodes Against Others Denies: Hx Panic Disorder - Immunization History Date of Tetanus Vaccine: utd Date of Influenza Vaccine: 01/24 Infectious Disease History: No Infectious Disease History: Denies: Traveled Outside the [place] in Last 30 Days - Family History Known Family History: Positive: Unknown - Patient is a poor historian. - Social History Occupation: Retired Lives: Prison Alcohol Use: None Substance Use Type: Reports: None Smoking Status (MU): Heavy Every Day Tobacco Smoker Review of Systems Constitutional: Negative Cardiovascular: Negative Respiratory: Negative Gastrointestinal: Negative Neurological: Negative Psychological: Normal All Other Systems Reviewed And Are Negative: Yes Physical Exam Triage Information Reviewed: Yes Vital Signs On Initial Exam: Initial Vitals Temp Pulse Resp BP Pulse Ox 98.3 F 118 14 191/93 99 05/05/19 11:39 09/11/18 11:39 09/11/18 11:39 09/11/18 11:39 09/11/18 11:39 Vital Signs Reviewed: Yes Appearance: Positive: Well-Appearing - Pt. sitting in chair in NAD. Pleasant. Answers questions appropriately. Skin: Positive: Warm, Dry Head/Face: Positive: Normal Head/Face Inspection Eyes: Positive: Normal, EOMI, DEBBIE Neck: Positive: Supple Musculoskeletal: Positive: Normal, Strength/ROM Intact Neurological: Positive: Normal, Alert, Oriented to Person Place, Time, CN Intact II-III Psychiatric: Positive: Affect/Mood Appropriate Diagnostics - Vital Signs Vital Signs Temp Pulse Resp BP Pulse Ox 09/11/18 11:39 98.3 F 118 14 191 99 - Laboratory Lab Statement: Any lab studies that have been ordered have been reviewed, and results considered in the medical decision making process. Course/Dx - Course Course Of Treatment: Pt. presenting for eval after getting angry with staff today. Pt. denies HI or SI. Pt. is cooperative and calm without complaint. MHE not warranted at this time. Pt. will be dc back to [facility]. To . with PCP in 2-3 days. Continue home medications as directed. Return to ER if symptoms change or worsen. - Differential Dx/Clinical Impression Provider Diagnosis: Stress reaction Discharge - Sign-Out/Discharge Documenting (check all that apply): Patient Departure Patient Received Moderate/Deep Sedation with Procedure: No - Discharge Plan Condition: Good Disposition: HOME Referrals: [facility] [Outside] Additional Instructions: Follow up with PCP Continue home medications as directed Return to ER if symptoms change or worsen - Billing Disposition and Condition Condition: GOOD Disposition: Home
[2018-09-11 14:40] VITALS: BP 154/68
== END 2018-09-11 14:39 | disposition home or self-care (01) ==
LOC: ED 11:34
DX: F43.9 Reaction to severe stress, unspecified (principal); F43.10 Post-traumatic stress disorder, unspecified; M19.90 Unspecified osteoarthritis, unspecified site; E78.00 Pure hypercholesterolemia, unspecified; I10 Essential (primary) hypertension; Z88.0 Allergy status to penicillin; Z72.0 Tobacco use; F20.9 Schizophrenia, unspecified
CPT/HCPCS: 99282